=== PATIENT | female | born 1985 | race Caucasian/White ===

== ENCOUNTER 2024-07-21 20:33 | Emergency (ER) | payer OTHER ==
[~2024-07-21] VITALS: Ht 157.5 cm; Wt 61.0 kg
[2024-07-21 20:58] VITALS: BP 128/91; RESP 18; TEMP 98.4; O2SAT 100
[2024-07-21 21:10] VITALS: PULSE 101; O2SAT 100
== END 2024-07-21 22:55 | disposition left against medical advice (07) ==
LOC: ER 20:33
DX: R51.9 Headache, unspecified (principal); Z53.21 Procedure and treatment not carried out due to patient leaving prior to being seen by health care provider